=== PATIENT | male | born 1970 | race African-American/Black ===

== ENCOUNTER 2017-07-04 14:03 | Emergency (ER) | payer OTHER ==
[2017-07-04 14:07] VITALS: TEMP 98; BMI 32.1
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
[2017-07-04 15:06] VITALS: BP 157/86; PULSE 80
== END 2017-07-04 15:19 | disposition home or self-care (01) ==
LOC: FER 14:03
DX: S39.012A Strain of muscle, fascia and tendon of lower back, initial encounter (principal); S46.912A Strain of unspecified muscle, fascia and tendon at shoulder and upper arm level, left arm, initial encounter; V73.1XXA Passenger on bus injured in collision with car, pick-up truck or van in nontraffic accident, initial encounter; Y93.89 Activity, other specified; Y92.410 Unspecified street and highway as the place of occurrence of the external cause; E11.9 Type 2 diabetes mellitus without complications; I10 Essential (primary) hypertension; E78.5 Hyperlipidemia, unspecified
CPT/HCPCS: 72100-TC-FY; 73030-TC-LT-FY; 99282-25